=== PATIENT | female | born 1965 | race Caucasian/White ===

== ENCOUNTER 2016-04-03 17:31 | Inpatient (IN) | payer BC ==
[~2016-04-03] VITALS: Ht 175.3 cm; Wt 134.3 kg
[~2016-04-03 17:31] MED LIST: AMLODIPINE BESYL5 MG PO; ATIVAN0.5 MG PO; CARAFATE1 GM PO; COMPAZINE10 MG PO; DECADRON2 MG PO; DECADRON4 MG PO; ESSENTIAL DAIL1 EACH PO; FENTANYL1 EAC1 TD; FENTANYL1 EAC5 TD; KEPPRA500 MG PO; LEVETIRACETAM500 MG PO; MARINOL2.5 M1 PO; METFORMIN HCL500 MG PO; OMEPRAZOLE40 M1 PO; OXAYDO5 MG PO; OXYCODONE HCL10 MG PO; PANTOPRAZOLE SO40 MG PO; PROAIR HFA8.5 GM IH; SPECTRAVITE1 EAC3 PO; SUCRALFATE1 GM PO; ZANTAC150 MG PO; ZOFRAN8 MG PO
[2016-04-03 20:54] LABS: BASOPHIL COUNT 0.1 K/uL (0-0.1); EOSINOPHIL (%) 0.6 % (0-5); EOSINOPHIL COUNT 0.1 K/uL (0-0.3); HEMATOCRIT 35.3 % (36.0-46.0); IMMATURE GRANULOCYTE COUNT 2.2 K/uL; LYMPHOCYTE COUNT 1.2 K/uL (1.0-2.8); MCH 30.6 PG (29.0-34.0); MCHC 32.3 G/DL (30.0-36.0); MEAN PLAT.VOLUME 9.7 uM^3 (9.5-12.4); MONOCYTE (%) 8.7 % (3-12); MONOCYTE COUNT 0.9 K/uL (0-0.8); NEUTROPHIL (%) 77.3 % (45-76); NEUTROPHIL COUNT 8.3 K/uL (1.8-6.4); PLATELET COUNT 199 K/uL (156-360); RBC DIS.WIDTH-CV 18.5 % (11.8-14.6); RBC DIS.WIDTH-SD 60.5 % (39-53); RED BLOOD COUNT 3.73 M/uL (3.80-5.20); WHITE BLOOD COUNT 10.8 K/uL (4.1-10.2)
[2016-04-03 21:09] LABS: TROP-I INTERPRETATION NEGATIVE; TROPONIN-I 0.03 ng/mL (0.0-0.30)
[2016-04-03 21:21] LABS: CHLORIDE 94 mEq/L (99-109); SODIUM 140 mEq/L (136-147)
[2016-04-03 21:23] LABS: GLUCOSE 182 mg/dL (70-99)
[2016-04-03 21:25] LABS: ANION GAP 14 MEQ/L (2-14); TOTAL BILIRUBIN 0.5 mg/dL (0.0-1.0)
[2016-04-03 21:27] LABS: ALKALINE PHOSPHATASE 118 IU/L (3-129); GFR ESTIMATE (CALCULATED) > 59 mL/min/
[2016-04-03 21:28] LABS: UREA NITROGEN (BUN) 17 mg/dL (9-23)
[2016-04-03 21:39] LABS: MCV 94.6 FL (83-99)
[2016-04-03] MEDS ORDERED: AMLODIPINE BESYL5 MG PO (22:43)
[2016-04-03] MEDS ORDERED: FENTANYL1 EAC5 TD (22:45)
[2016-04-03] MEDS ORDERED: DECADRON2 MG PO (22:48)
[2016-04-03] MEDS ORDERED: METFORMIN HCL500 MG PO (22:49)
[2016-04-04] VITALS (7 sets, daily range): BP systolic 147–167; BP diastolic 90–106
[2016-04-04 08:03] LABS: TROP-I INTERPRETATION NEGATIVE; TROPONIN-I 0.03 ng/mL (0.0-0.30)
[2016-04-04 08:23] LABS: PROTHROMBIN TIME 10.6 (9.2-11.2); PTT 23.6 (25-32)
[2016-04-04 12:22] LABS: TROP-I INTERPRETATION NEGATIVE; TROPONIN-I 0.04 ng/mL (0.0-0.30)
[2016-04-04 18:29] LABS: Estimated Average Glucose 169 mg/dL (70-123); HEMOGLOBIN A1c (GLYCOHEMOGLOB) 7.5 % HGB (Below 5.7)
[2016-04-05 03:29] VITALS: BP 162/90
[2016-04-05 07:03] LABS: HEMATOCRIT 32.5 % (36.0-46.0); MCH 30.5 PG (29.0-34.0); MCHC 32.3 G/DL (30.0-36.0); MCV 94.5 FL (83-99); MEAN PLAT.VOLUME 10.6 uM^3 (9.5-12.4); PLATELET COUNT 178 K/uL (156-360); RBC DIS.WIDTH-CV 18.4 % (11.8-14.6); RBC DIS.WIDTH-SD 62.6 % (39-53); RED BLOOD COUNT 3.44 M/uL (3.80-5.20); WHITE BLOOD COUNT 7.9 K/uL (4.1-10.2)
[2016-04-05 07:37] LABS: ANION GAP 10 MEQ/L (2-14); CHLORIDE 94 MEQ/L (99-109); GFR ESTIMATE (CALCULATED) > 59 mL/min/; GLUCOSE 214 mg/dL (70-99); POTASSIUM 3.5 MEQ/L (3.7-5.4); SAMPLE HEMOLYSIS CHECK 0; SAMPLE ICTERIC CHECK 0; SAMPLE LIPEMIA CHECK 0; SODIUM 140 MEQ/L (136-147); UREA NITROGEN (BUN) 14 mg/dL (9-23)
[2016-04-05 08:33] VITALS: BP 148/83
[2016-04-05 11:25] VITALS: BP 128/71
[2016-04-05 11:43] LABS: POINT-OF-CARE METER ID UU13113725
[2016-04-05 16:02] LABS: TYPE OF FLUID THORACENTESIS
[2016-04-05 16:19] VITALS: BP 139/92
[2016-04-05 16:36] LABS: BODY FLUID RBC'S 477000 /MM^3 (0-100); BODY FLUID WBC'S 917 /MM^3 (0-500)
[2016-04-05 16:43] LABS: POINT-OF-CARE METER ID UU13113725
[2016-04-05 16:53] LABS: BODY FLUID LDH 1979 IU/L; BODY FLUID PROTEIN 3.4 G/DL
[2016-04-05 17:01] LABS: BODY FLUID EOSINOPHILS 0 % (0-25); MONO RAW COUNT 24; MONONUCLEAR WBC'S 24 %; POLY RAW COUNT 76; POLYNUCLEAR WBC'S 76 % (0-25)
[2016-04-05 17:03] LABS: RED CELL AREA COUNTED ND; RED CELL DILUTION ND; WBC AREA COUNTED ND; WBC DILUTION ND; WHITE CELL RAW COUNT ND
[2016-04-05 20:25] VITALS: BP 131/89
[2016-04-05 21:39] LABS: POINT-OF-CARE METER ID UU13113725
[2016-04-06] VITALS (7 sets, daily range): BP systolic 125–173; BP diastolic 78–97
[2016-04-06 06:31] LABS: POINT-OF-CARE METER ID UU13113725
[2016-04-06 06:44] LABS: HEMATOCRIT 29.2 % (36.0-46.0); MCH 29.7 PG (29.0-34.0); MCHC 31.5 G/DL (30.0-36.0); MCV 94.2 FL (83-99); MEAN PLAT.VOLUME 10.3 uM^3 (9.5-12.4); PLATELET COUNT 147 K/uL (156-360); RBC DIS.WIDTH-CV 18.5 % (11.8-14.6); RBC DIS.WIDTH-SD 63.2 % (39-53); WHITE BLOOD COUNT 6.6 K/uL (4.1-10.2)
[2016-04-06 09:01] LABS: ANION GAP 7 MEQ/L (2-14); CHLORIDE 97 MEQ/L (99-109); GFR ESTIMATE (CALCULATED) > 59 mL/min/; GLUCOSE 238 mg/dL (70-99); POTASSIUM 3.2 MEQ/L (3.7-5.4); SAMPLE HEMOLYSIS CHECK 0; SAMPLE ICTERIC CHECK 0; SAMPLE LIPEMIA CHECK 0; SODIUM 140 MEQ/L (136-147); UREA NITROGEN (BUN) 11 mg/dL (9-23)
[2016-04-06 16:03] LABS: POINT-OF-CARE METER ID UU13113725
[2016-04-06 22:40] LABS: BODY FLUID PH 7.6 (())
[2016-04-07 03:42] VITALS: BP 118/68
[2016-04-07 06:06] LABS: POINT-OF-CARE METER ID UU13113725
[2016-04-07 07:19] LABS: MCH 30.6 PG (29.0-34.0); MCHC 32.1 G/DL (30.0-36.0); MCV 95.2 FL (83-99); MEAN PLAT.VOLUME 10.5 uM^3 (9.5-12.4); PLATELET COUNT 161 K/uL (156-360); RBC DIS.WIDTH-CV 18.3 % (11.8-14.6); RBC DIS.WIDTH-SD 63.2 % (39-53); RED BLOOD COUNT 2.94 M/uL (3.80-5.20); WHITE BLOOD COUNT 7.7 K/uL (4.1-10.2)
[2016-04-07 07:58] LABS: ANION GAP 9 MEQ/L (2-14); CHLORIDE 98 MEQ/L (99-109); GFR ESTIMATE (CALCULATED) > 59 mL/min/; GLUCOSE 220 mg/dL (70-99); SAMPLE HEMOLYSIS CHECK 0; SAMPLE ICTERIC CHECK 0; SAMPLE LIPEMIA CHECK 0; SODIUM 142 MEQ/L (136-147); UREA NITROGEN (BUN) 11 mg/dL (9-23)
[2016-04-07 08:49] VITALS: BP 128/85
[2016-04-07 12:18] LABS: POINT-OF-CARE USER ID 609231305
[2016-04-07 16:52] VITALS: BP 137/90
[2016-04-07 16:59] LABS: POINT-OF-CARE METER ID UU13113725
[2016-04-07 19:50] VITALS: BP 136/85
[2016-04-08 08:26] VITALS: BP 137/80
[2016-04-08 11:31] LABS: POINT-OF-CARE METER ID UU13113725
[2016-04-08 13:24] LABS: POINT-OF-CARE METER ID UU13113725
[2016-04-08 16:29] VITALS: BP 130/76
[2016-04-08 16:31] LABS: POINT-OF-CARE METER ID UU13113725
[2016-04-08 22:41] VITALS: BP 140/83
[2016-04-09 07:59] VITALS: BP 132/77
[2016-04-09] MEDS ORDERED: HYOSCYAMINE0.125 M2 PO (14:32)
[2016-04-09] MEDS ORDERED: MORPHINE CON20 MG/M1 PO (14:33)
[2016-04-09] MEDS ORDERED: Magic Mouthwash Garg MM (14:33)
[2016-04-09] MEDS ORDERED: TRAZODONE HCL50 MG PO (14:33)
[2016-04-09] MEDS ORDERED: OXYCODONE HCL5 MG PO (14:33)
[2016-04-09] MEDS ORDERED: ADVAIR HFA120 INHALA IH (14:33)
[2016-04-09] MEDS ORDERED: DOCUSATE SODIU100 MG PO (14:33)
[2016-04-09] MEDS ORDERED: PREDNISONE20 MG PO (14:33)
[2016-04-09] MEDS ORDERED: DECADRON2 MG PO (14:33)
[2016-04-09] MEDS ORDERED: FUROSEMIDE20 MG PO (14:33)
[2016-04-09] MEDS ORDERED: FLUCONAZOLE200 MG PO (14:33)
[2016-04-09] MEDS ORDERED: SPIRIVA RESPIMAT4 GM IH (14:33)
[2016-04-09 16:09] VITALS: BP 128/83
[2016-04-09 21:00] LABS: POINT-OF-CARE METER ID UU13113725
[2016-04-09 23:43] VITALS: BP 130/77
[2016-04-10 08:00] VITALS: BP 146/89
[2016-04-10] MEDS ORDERED: DURAGESIC100 MCG TD (12:17)
[2016-04-10] MEDS ORDERED: MIRALAX17 GM PO (12:55)
[2016-04-10] MEDS ORDERED: OXYCODONE20 MG/1 ML PO (15:25)
== END 2016-04-10 16:21 | disposition hospice, home (50) | DRG 180 ==
LOC: EME 17:31 → EDOF 04-04 00:58 → 5EAST 04-04 00:58
PROVIDERS: Emergency Medicine; Hospitalist; Internal Medicine; Radiology Diagnostic Radiology
PROC: 0W9B3ZZ Drainage of Left Pleural Cavity, Percutaneous Approach (ICD-10-PCS; principal; 2016-04-04)
PROC: 0W9B3ZX Drainage of Left Pleural Cavity, Percutaneous Approach, Diagnostic (ICD-10-PCS; 2016-04-05)
PROC: 0W9B30Z Drainage of Left Pleural Cavity with Drainage Device, Percutaneous Approach (ICD-10-PCS; 2016-04-07)
DX: C34.92 Malignant neoplasm of unspecified part of left bronchus or lung (principal); J91.0 Malignant pleural effusion; C79.31 Secondary malignant neoplasm of brain; J18.9 Pneumonia, unspecified organism; C79.51 Secondary malignant neoplasm of bone; M48.54XA Collapsed vertebra, not elsewhere classified, thoracic region, initial encounter for fracture; G89.3 Neoplasm related pain (acute) (chronic); M25.551 Pain in right hip; J98.11 Atelectasis; B37.0 Candidal stomatitis; E11.65 Type 2 diabetes mellitus with hyperglycemia; T38.0X5A Adverse effect of glucocorticoids and synthetic analogues, initial encounter; E66.9 Obesity, unspecified; Z68.41 Body mass index [BMI] 40.0-44.9, adult; I10 Essential (primary) hypertension; R00.0 Tachycardia, unspecified; R09.02 Hypoxemia; Z87.891 Personal history of nicotine dependence
CPT/HCPCS: 71010; 71020; 73502; 77336; 77412; 77417; 80048; 80053; 81003; 82945; 82947 91; 82948; 83036; 83615; 83615 91; 83880; 83986 90; 84155; 84157; 84484; 85025; 85027; 85610; 85730; 87070; 87075; 87205; 88108; 88305; 89051; 93970; 94640; 94640 76; 94644; 94799; 99202; 99281; 99285; C1729; J0360; J0456; J0692; J1644; J1815; J1940; J2270; J2405; J2930; J3010; J7050; J7512; J8540; Q0164